=== PATIENT | female | born 1965 | race Two or more races ===

== ENCOUNTER 2024-06-20 09:24 | Day surgery (SDC) | payer OTHER ==
[~2024-06-20 09:24] MED LIST: METFORMIN HCL1000 M2 PO; SYNTHROID100 MCG PO
[2024-06-20] MEDS ORDERED: METRONIDAZOLE/SODIUM CHLORIDE 500 MG/100 ML PIGGYBACK IV ONE (12:04)
[2024-06-20] MEDS ORDERED: CEFTRIAXONE SODIUM 2,000 MG VIAL ONE (12:04)
[2024-06-20] MEDS ORDERED: POVIDONE-IODINE 118 ML BOTT TOP ONE (12:49)
[2024-06-20] MEDS ORDERED: DIBUCAINE 30 GM TUBE ONE (12:49)
[2024-06-20] MEDS ORDERED: HEMOSTATIC MATRIX 1 KIT KIT TOP ONE (12:50)
== END 2024-06-20 17:40 | disposition home or self-care (01) ==
LOC: CIR.AMB 09:24
PROVIDERS: ATTEND Colon & Rectal Surgery
DX: K64.2 Third degree hemorrhoids (principal); K64.4 Residual hemorrhoidal skin tags